=== PATIENT | female | born 1965 | race Caucasian/White ===

== ENCOUNTER 2023-01-18 11:56 | Inpatient (IN) | payer OTHER ==
[2023-01-18 12:49] VITALS: BMI 21.5
[2023-01-19] MEDS ORDERED: MAGNESIUM HYDROX 2400MG/30ML ORAL SUSPENSION 30 ML CUP PO PRN (00:09)
[2023-01-19] MEDS ORDERED: NALOXONE HCL (KLOXXADO) 8 MG SPRAY NS PRN (00:09)
[2023-01-19] MEDS ORDERED: POLYETHYLENE GLYCOL (HEALTHYLAX) 3350 17 GM PACKET PO PRN (00:09)
[2023-01-19] MEDS ORDERED: hydrOXYzine PAMOATE 25 MG CAPSULE (FP) PO PRN (00:09)
[2023-01-19] MEDS ORDERED: P-EPHED 60MG/TRIPROLIDI 2.5MG TABLET PO PRN (00:09)
[2023-01-19] MEDS ORDERED: guaiFENesin 200 MG/10 ML 10 ML UNIT-DOSE CUPS PO PRN (00:09)
[2023-01-19] MEDS ORDERED: DICYCLOMINE HCL 10 MG CAPSULE PO PRN (00:09)
[2023-01-19] MEDS ORDERED: BISMUTH SUBSALICYLATE 524 MG/30 ML PO PRN (00:09)
[2023-01-19] MEDS ORDERED: LOPERAMIDE HCL 2 MG CAPSULE PO PRN (00:09)
[2023-01-19] MEDS ORDERED: BENZOCAINE/MENTHOL (CHLORASEPTIC ) LOZENGE MM PRN (00:09)
[2023-01-19] MEDS ORDERED: ACETAMINOPHEN 325 MG TABLET (FP) PO PRN ×2 (00:09)
[2023-01-19] MEDS ORDERED: MAG HYDROX/AL HYDROX/SIMETH 30 ML UNIT-DOSE CUP PO PRN (00:09)
[2023-01-19] MEDS ORDERED: NALOXONE HCL 0.4 MG/ML VIAL IM PRN (00:09)
[2023-01-19] MEDS ORDERED: IBUPROFEN 600 MG TABLET (FP) PO PRN (00:09)
[2023-01-19] MEDS ORDERED: ONDANSETRON *ODT* 4 MG TABLET SL PRN (00:09)
[2023-01-19] MEDS ORDERED: diazePAM 5 MG TABLET PO ONE ×2 (00:13→01:45)
[2023-01-19] MEDS ORDERED: CEPHALEXIN MONOHYDRATE 250 MG CAPSULE (FP) PO SCH (00:14)
[2023-01-19] MEDS ORDERED: cloNIDine HCL 0.1 MG TABLET PO ONE ×2 (00:14→01:45)
[2023-01-19] MEDS: MELATONIN 5 MG TABLETS PO PRN ×2 (02:18→22:19)
[2023-01-19] MEDS: CEPHALEXIN MONOHYDRATE 250 MG CAPSULE (FP) PO SCH ×5 (02:18→23:01)
[2023-01-19] MEDS: PRENATAL VITAMINS W/ FOLIC ACID TABLET (FP) PO SCH (10:29)
[2023-01-19] MEDS: METHOCARBAMOL 500 MG TABLET PO PRN (12:56)
[2023-01-19] MEDS ORDERED: methaDONE HCL 10 MG TABLET (FOR DETOX USE ONLY) PO ONE (15:31)
[2023-01-19] MEDS: cloNIDine HCL 0.1 MG TABLET PO PRN ×2 (17:17→22:21)
[2023-01-19] MEDS: QUEtiapine FUMARATE 50 MG TABLET PO SCH (22:19)
[2023-01-19] MEDS: THIAMINE HCL 100 MG TABLET (FP) PO SCH (22:19)
[2023-01-20] MEDS: CEPHALEXIN MONOHYDRATE 250 MG CAPSULE (FP) PO SCH ×3 (05:30→17:03)
[2023-01-20] MEDS: PRENATAL VITAMINS W/ FOLIC ACID TABLET (FP) PO SCH (09:34)
[2023-01-20] MEDS: cloNIDine HCL 0.1 MG TABLET PO PRN ×3 (09:34→22:08)
[2023-01-20] MEDS: METHOCARBAMOL 500 MG TABLET PO PRN ×2 (09:34→22:10)
[2023-01-20] MEDS: IBUPROFEN 400 MG TABLET (FP) PO PRN (17:04)
[2023-01-20] MEDS: THIAMINE HCL 100 MG TABLET (FP) PO SCH (22:07)
[2023-01-20] MEDS: QUEtiapine FUMARATE 50 MG TABLET PO SCH (22:07)
[2023-01-20] MEDS: MELATONIN 5 MG TABLETS PO PRN (22:09)
[2023-01-21] MEDS: CEPHALEXIN MONOHYDRATE 250 MG CAPSULE (FP) PO SCH ×4 (00:13→17:21)
[2023-01-21] MEDS ORDERED: methaDONE HCL 10 MG TABLET (FOR DETOX USE ONLY) PO ONE (10:00)
[2023-01-21] MEDS: PRENATAL VITAMINS W/ FOLIC ACID TABLET (FP) PO SCH (10:08)
[2023-01-21] MEDS: METHOCARBAMOL 500 MG TABLET PO PRN (10:08)
[2023-01-21] MEDS: MELATONIN 5 MG TABLETS PO PRN (22:13)
[2023-01-21] MEDS: THIAMINE HCL 100 MG TABLET (FP) PO SCH (22:13)
[2023-01-21] MEDS: QUEtiapine FUMARATE 50 MG TABLET PO SCH (22:15)
[2023-01-22] MEDS: CEPHALEXIN MONOHYDRATE 250 MG CAPSULE (FP) PO SCH ×5 (00:06→23:53)
[2023-01-22] MEDS: PRENATAL VITAMINS W/ FOLIC ACID TABLET (FP) PO SCH (10:04)
[2023-01-22] MEDS: METHOCARBAMOL 500 MG TABLET PO PRN (10:04)
[2023-01-22] MEDS: cloNIDine HCL 0.1 MG TABLET PO SCH ×2 (14:02→22:09)
[2023-01-22] MEDS: IBUPROFEN 400 MG TABLET (FP) PO PRN (17:39)
[2023-01-22] MEDS: MELATONIN 5 MG TABLETS PO PRN (22:09)
[2023-01-22] MEDS: THIAMINE HCL 100 MG TABLET (FP) PO SCH (22:10)
[2023-01-22] MEDS: QUEtiapine FUMARATE 50 MG TABLET PO SCH (22:10)
[2023-01-23] MEDS: CEPHALEXIN MONOHYDRATE 250 MG CAPSULE (FP) PO SCH ×3 (05:56→17:35)
[2023-01-23] MEDS: cloNIDine HCL 0.1 MG TABLET PO SCH ×2 (09:45→22:14)
[2023-01-23] MEDS: PRENATAL VITAMINS W/ FOLIC ACID TABLET (FP) PO SCH (09:45)
[2023-01-23] MEDS ORDERED: methaDONE HCL 10 MG TABLET (FOR DETOX USE ONLY) PO ONE (10:00)
[2023-01-23] MEDS: THIAMINE HCL 100 MG TABLET (FP) PO SCH (22:14)
[2023-01-23] MEDS: QUEtiapine FUMARATE 50 MG TABLET PO SCH (22:14)
[2023-01-24 09:02] VITALS: BP 146/79; PULSE 91; RESP 16; TEMP 97.4
[2023-01-24] MEDS: cloNIDine HCL 0.1 MG TABLET PO SCH (09:41)
[2023-01-24] MEDS: PRENATAL VITAMINS W/ FOLIC ACID TABLET (FP) PO SCH (09:41)
== END 2023-01-24 12:56 | disposition home or self-care (01) | DRG 773 ==
LOC: YASAS 11:56 → Y3N 14:12
PROVIDERS: ADMIT Allergy & Immunology; ATTEND Surgery
PROC: HZ2ZZZZ Detoxification Services for Substance Abuse Treatment (ICD-10-PCS; principal; 2023-01-18)
DX: F11.23 Opioid dependence with withdrawal (principal); F17.210 Nicotine dependence, cigarettes, uncomplicated; F31.9 Bipolar disorder, unspecified; F20.9 Schizophrenia, unspecified; F43.10 Post-traumatic stress disorder, unspecified; G47.00 Insomnia, unspecified; I10 Essential (primary) hypertension; N39.0 Urinary tract infection, site not specified; R63.4 Abnormal weight loss; Z68.21 Body mass index [BMI] 21.0-21.9, adult; Q85.00 Neurofibromatosis, unspecified
CPT/HCPCS: 36415; 86780; 87811; 93005; 93010; C9803-CS; U0003; U0005

== ENCOUNTER 2023-01-18 15:33 | Emergency (ER) | payer OTHER ==
[2023-01-18 15:45] VITALS: BP 138/91; PULSE 83; RESP 16; TEMP 98.6; BMI 20.7
[2023-01-18] MEDS ORDERED: SODIUM CHLORIDE 0.9% 500 ML INFUS.BAG IV ONE (18:35)
[2023-01-18 19:02] LABS: BASO % 1.4 % (0-2.0); EOS % 0.5 % (0-4.5); HEMATOCRIT 41.8 % (32.4-45.2); HEMOGLOBIN 13.6 GM/dL (10.7-15.3); LYMPH % 23.2 % (8-40); MCH 28.6 pg (25.7-33.7); MCHC 32.5 g/dl (32.0-36.0); MEAN CELL VOLUME 88.1 fl (80-96); MEAN PLT VOLUME 10.4 fl (7.5-11.1); MONO % 5.7 % (3.8-10.2); NEUT % 69.2 % (42.8-82.8); PLATELET COUNT 310 10^3/uL (134-434); RBC 4.74 M/mm3 (3.60-5.2); RDW 14.1 % (11.6-15.6); WHITE BLOOD COUNT 7.6 K/mm3 (4.0-10.0)
[2023-01-18 19:20] LABS: CALCIUM 9.3 mg/dL (8.5-10.1)
[2023-01-18 19:21] LABS: ALBUMIN 3.6 g/dl (3.4-5.0); BLOOD UREA NITROGEN 16.1 mg/dL (7-18); MAGNESIUM 1.8 mg/dL (1.8-2.4)
[2023-01-18 19:23] LABS: CREATININE 0.9 mg/dL (0.55-1.3)
[2023-01-18 19:25] LABS: BILIRUBIN,TOTAL 0.4 mg/dL (0.2-1); TOT PROT 7.6 g/dl (6.4-8.2)
[2023-01-18 19:48] LABS: EPI CELLS 29 /uL (0-25.1); HYALINE CASTS 0 /uL (0-3.1); URINE APPEARANCE CLOUDY; URINE BACTERIA >9,000 /uL (0-1359); URINE BILIRUBIN NEGATIVE (NEGATIVE); URINE COLOR YELLOW; URINE GLUCOSE (UA) NEGATIVE (NEGATIVE); URINE KETONE NEGATIVE (NEGATIVE); URINE LEUK ESTERASE 1+ (NEGATIVE); URINE NITRITE NEGATIVE (NEGATIVE); URINE PROTEIN NEGATIVE (NEGATIVE); URINE RBC 6 /uL (0-23.9); URINE WBC 87 /uL (0-25.8)
[2023-01-18] MEDS ORDERED: CEPHALEXIN MONOHYDRATE 500 MG CAPSULE (UD) PO ONE (20:42)
[2023-01-18] MEDS ORDERED: CEPHALEXIN MONOHYDRATE 250 MG CAPSULE (FP) ONE (20:58)
== END 2023-01-18 21:42 | disposition home or self-care (01) ==
LOC: JER 15:33
DX: N39.0 Urinary tract infection, site not specified (principal); R10.84 Generalized abdominal pain
CPT/HCPCS: 36415; 74177-TC; 80053; 81003; 83690; 83735; 85025; 87086; 99285-25; Q9967